=== PATIENT | female | born 1975 | race Caucasian/White ===

== ENCOUNTER 2016-12-04 09:31 | Emergency (ER) | payer MEDICAID, OTHER ==
[~2016-12-04] VITALS: Ht 157.5 cm; Wt 100.0 kg
[2016-12-04 09:38] VITALS: BP 171/90; PULSE 80; RESP 16; TEMP 98.7; O2SAT 99
[2016-12-04] MEDS ORDERED: PERM5CRE TOPICAL (09:50)
--- NOTE | 2016-12-04 09:51 | PD ---
HPI Chief Complaint: Skin Problem Time Seen by Provider: 09:49 Travel History International Travel<30 days: No Contact w/Intl Traveler<30days: No History of Present Illness HPI 41 year old female presents to the emergency department for evaluation of itchy rash. She arrives with her children with the same rash. I was asked by the systems engineer to see the patient. The children were recently diagnosed with scabies. She has no chronic medical problems and takes no prescribed medications. She denies any fevers or chills. She has no other complaints at this time. [facility]MERLY [facility] Past Medical History Medical History: Denies Significant Hx Immunizations Current: Yes ?: Not Past Surgical History Appendectomy: Yes Cholecystectomy: Yes Gynecologic Surgery: Yes Social History Alcohol Use: No Tobacco Use: Yes Substance Use: No Allergies-Medications (Allergen,Severity, Reaction): Coded Allergies: No Known Allergies (Unverified , 12/04/16) Reported Meds & Prescriptions Reported Meds & Active Scripts Active Permethrin Topical (Permethrin) 5% Cream 1 Applic TOPICAL ONCE Review of Systems Except as stated in HPI: all other systems reviewed are Neg Physical Exam Narrative GENERAL: Well-nourished, well-developed female patient, ambulatory and in no acute distress. Afebrile. SKIN: Focused skin assessment warm/dry. Patient has small scabbed lesions to the upper extremities and lower back. HEAD: Normocephalic. Atraumatic. EYES: No scleral icterus. No injection or drainage. NECK: Supple, trachea midline. No JVD or lymphadenopathy. CARDIOVASCULAR: Regular rate and rhythm without murmurs, gallops, or rubs. RESPIRATORY: Breath sounds equal bilaterally. No accessory muscle use. Lung sounds are clear to auscultation throughout. GASTROINTESTINAL: Abdomen soft, non-tender, nondistended. MUSCULOSKELETAL: No cyanosis, or edema. BACK: Nontender without obvious deformity. No CVA tenderness. Data Data Last Documented VS Vital Signs Date Time Temp Pulse Resp B/P Pulse Ox O2 Delivery O2 Flow Rate FiO2 12/04/16 09:38 98.7 80 16 171/90 99 MDM Medical Decision Making Medical Screen Exam Complete: Yes Emergency Medical Condition: Yes Medical Record Reviewed: Yes Differential Diagnosis Scabies versus insect bites versus contact dermatitis Narrative Course 41-year-old female presents to the emergency department with her children for evaluation of an itchy rash. I was asked by the systems engineer to see the mother as the kids were just diagnosed with scabies. Physical exam is consistent with scabies. Patient will be discharged prescription for permethrin cream. She verbalizes agreement and understanding. The patient was discharged in stable condition with instructions, including return instructions and follow up instructions. Diagnosis Primary Impression: Scabies Referrals: Primary Care Physician call for appointment Patient Instructions: General Instructions, Scabies (ED) Departure Forms: Tests/Procedures, Work Release Enter return to work date: Dec 05, 2016 Additional Instructions: Use permethrin cream as instructed. Thoroughly massage cream (30 g for average adult) from head to soles of feet; leave on for 8 to 14 hours before removing ( shower or bath) Follow-up with your primary care physician. Return to the emergency department for any acute worsening of symptoms. Med/Other Pt SpecificInfo: Prescription(s) given Scripts Permethrin Topical 5% Cream1 Applic TOPICAL ONCE #1 TUBE Ref 0 Prov:Hayley Ortega 12/04/16 Disposition: 01 DISCHARGE HOME Condition: Stable Hayley Ortega Dec 04, 2016 09:51
== END 2016-12-04 10:16 | disposition home or self-care (01) ==
LOC: NEPA 09:31
DX: B86 Scabies (principal); Z72.0 Tobacco use
CPT/HCPCS: 99282

== ENCOUNTER 2017-06-09 14:51 | Observation (INO) | payer MEDICAID ==
[~2017-06-09] VITALS: Ht 157.5 cm; Wt 105.0 kg
[~2017-06-09 14:51] MED LIST: PERM5CRE TOPICAL
[2017-06-09 14:52] VITALS: BP 164/77; PULSE 111; RESP 22; TEMP 98.9; O2SAT 96
[2017-06-09] MEDS ORDERED: IOHEXOL 350 MG/ML 10 ML VIAL (for RAD DIAG) IVCONTRAST ONE (14:52)
[2017-06-09] MEDS ORDERED: SODIUM CHLOR 0.9% 1000 ML INJ 1,000 ML IV SCH ×2 (15:41→18:30)
[2017-06-09] MEDS ORDERED: MORPHINE SULFATE 8 MG/ML INJ IV PUSH ONE (15:45)
[2017-06-09] MEDS ORDERED: SODIUM CHLORIDE 0.9% FLUSH 10 ML FLUSH IV FLUSH PRN ×2 (15:45→19:00)
[2017-06-09] MEDS ORDERED: ONDANSETRON HCL 4 MG/2 ML VIAL IVP ONE (15:45)
[2017-06-09 16:16] LABS: AUTOMATED NEUTROPHIL # 10.5 TH/MM3 (1.8-7.7); BASOPHIL # 0.1 TH/MM3 (0-0.2); BASOPHIL % 0.5 % (0.0-2.0); EOSINOPHIL # 0.1 TH/MM3 (0-0.4); EOSINOPHIL % 0.6 % (0.0-4.0); HEMATOCRIT 40.7 % (35.0-46.0); LYMPH % 19.4 % (9.0-44.0); LYMPHOCYTE # 2.8 TH/MM3 (1.0-4.8); MEAN CELL VOLUME 94.8 FL (80.0-100.0); MEAN CORPUSCULAR HEMOGLOBIN 34.5 PG (27.0-34.0); MONO % 6.5 % (0.0-8.0); PLATELET COUNT 238 TH/MM3 (150-450); RED BLOOD COUNT 4.29 MIL/MM3 (4.00-5.30); RED CELL DISTRIBUTION WIDTH 12.2 % (11.6-17.2); WHITE BLOOD COUNT 14.4 TH/MM3 (4.0-11.0)
[2017-06-09 16:19] LABS: HEMO FLAGS AUTO DIFF; MEAN CORPUSCULAR HGB CONC 36.3 % (32.0-36.0)
[2017-06-09 16:22] LABS: BLOOD, URINE TRACE (NEG); GLUCOSE,URINE 1000 mg/dL (NEG); KETONE, URINE NEG (NEG); NITRITE,URINE NEG (NEG); PH, URINE 6.5 (5.0-8.5); SQUAMOUS EPITHELIAL CELL URINE 1 /hpf (0-5); URINE COLOR LIGHT-YELLOW (YELLW/STRAW)
[2017-06-09 16:28] LABS: COMMENT (UR) CULT NOT INDICATED; CULTURE IF INDICATED CULT NOT INDICATED
[2017-06-09 16:35] LABS: ANION GAP 10 MEQ/L (5-15); BLOOD UREA NITROGEN 7 MG/DL (7-18); CHLORIDE 95 MEQ/L (98-107); GLOMERULAR FILTRATION RATE 103 ML/MIN (>89); POTASSIUM 4.1 MEQ/L (3.5-5.1); SODIUM (NA) 128 MEQ/L (136-145)
[2017-06-09 16:38] LABS: ALKALINE PHOSPHATASE 87 U/L (45-117); TOTAL BILIRUBIN ADULT 0.6 MG/DL (0.2-1.0)
[2017-06-09 16:57] LABS: BANDS 9 % (0-6); BASOPHILS 1 % (0-2); EOSINOPHILS 2 % (0-4); METAMYELOCYTES 1 % (0-1); NEUTROPHIL # MANUAL DIFF 10.5 TH/MM3 (1.8-7.7); PLATELET ESTIMATE SMEAR NORMAL (NORMAL); PLATELET MORPHOLOGY NORMAL (NORMAL); POLYS (SEG NEUTROPHILS) 63 % (16-70); SCAN/DIFF FINAL DIFF MANUAL; WBC DIFF SAMPLE 100
[2017-06-09] MEDS ORDERED: SODIUM CHLOR 0.9% 1000 ML INJ 1,000 ML IV ONE (17:10)
--- NOTE | 2017-06-09 17:10 | PD ---
HPI Chief Complaint: GI Complaint Time Seen by Provider: 15:16 Travel History International Travel<30 days: No Contact w/Intl Traveler<30days: No Traveled to known affect area: No History of Present Illness HPI Patient is 41 years old. She's had 3 days of epigastric pain and pain in the right upper quadrant. She reports flashes of hot and cold. She denies fever. Nausea and vomiting is reported. Decreased appetite is reported. Last menstruation was 2 days ago. She's had no diarrhea. Severity moderate. PFSH Past Medical History Immunizations Current: Yes ?: Not LMP: 05/31/17 Past Surgical History Appendectomy: Yes Cholecystectomy: Yes Gynecologic Surgery: Yes Social History Alcohol Use: No Tobacco Use: Yes Substance Use: No Allergies-Medications (Allergen,Severity, Reaction): Coded Allergies: No Known Allergies (Unverified , 12/04/16) Reported Meds & Prescriptions Reported Meds & Active Scripts Active Permethrin Topical (Permethrin) 5% Cream 1 Applic TOPICAL ONCE Review of Systems Except as stated in HPI: all other systems reviewed are Neg General / Constitutional: No: Fever Gastrointestinal: Positive: Nausea, Vomiting, Abdominal Pain Physical Exam Narrative GENERAL: 41-year-old female well-nourished well-developed no acute distress SKIN: Focused skin assessment warm/dry. HEAD: Atraumatic. Normocephalic. EYES: Pupils equal and round. No scleral icterus. No injection or drainage. ENT: No nasal bleeding or discharge. Mucous membranes pink and moist. NECK: Trachea midline. No JVD. CARDIOVASCULAR: Regular rate and rhythm. No murmur appreciated. RESPIRATORY: No accessory muscle use. Clear to auscultation. Breath sounds equal bilaterally. GASTROINTESTINAL: Soft. Minimal TTP epigastrium. MUSCULOSKELETAL: No obvious deformities. No clubbing. No cyanosis. No edema. NEUROLOGICAL: Awake and alert. No obvious cranial nerve deficits. Motor grossly within normal limits. Normal speech. PSYCHIATRIC: Appropriate mood and affect; insight and judgment normal. Data Data Last Documented VS Vital Signs Date Time Temp Pulse Resp B/P (MAP) Pulse Ox O2 Delivery O2 Flow Rate FiO2 06/09/17 14:52 98.9 111 22 164/77 (106) 96 VS reviewed Orders Orders Complete Blood Count With Diff (06/09/17 15:41) Comprehensive Metabolic Panel (06/09/17 15:41) Lipase (06/09/17 15:41) Urinalysis - C+S If Indicated (06/09/17 15:41) Ct Abd/Pel W Iv Contrast(Rout) (06/09/17 15:41) Iv Access Insert/Monitor (06/09/17 15:41) Ecg Monitoring (06/09/17 15:41) Oximetry (06/09/17 15:41) Ondansetron Inj (Zofran Inj) (06/09/17 15:45) Sodium Chlor 0.9% 1000 Ml Inj (Ns 1000 M (06/09/17 15:41) Sodium Chloride 0.9% Flush (Ns Flush) (06/09/17 15:45) Morphine Inj (Morphine Inj) (06/09/17 15:45) Ed Urine Pregnancytest Poc (06/09/17 15:41) Iohexol 350 Inj (Omnipaque 350 Inj) (06/09/17 14:52) Labs Laboratory Tests Test 06/09/17 15:55 06/09/17 16:00 Urine Color LIGHT-YELLOW Urine Turbidity CLEAR Urine pH 6.5 Urine Specific [place] 1.039 Urine Protein NEG mg/dL Urine Glucose (UA) 1000 mg/dL Urine Ketones NEG mg/dL Urine Occult Blood TRACE Urine Nitrite NEG Urine Bilirubin NEG Urine Urobilinogen LESS THAN 2.0 MG/DL Urine Leukocyte Esterase NEG Urine RBC LESS THAN 1 /hpf Urine Squamous Epithelial Cells 1 /hpf Microscopic Urinalysis Comment CULT NOT INDICATED White Blood Count 14.4 TH/MM3 Red Blood Count 4.29 MIL/MM3 Hemoglobin 14.8 GM/DL Hematocrit 40.7 % Mean Corpuscular Volume 94.8 FL Mean Corpuscular Hemoglobin 34.5 PG Mean Corpuscular Hemoglobin Concent 36.3 % Red Cell Distribution Width 12.2 % Platelet Count 238 TH/MM3 Mean Platelet Volume 8.3 FL Neutrophils (%) (Auto) 73.0 % Lymphocytes (%) (Auto) 19.4 % Monocytes (%) (Auto) 6.5 % Eosinophils (%) (Auto) 0.6 % Basophils (%) (Auto) 0.5 % Neutrophils # (Auto) 10.5 TH/MM3 Lymphocytes # (Auto) 2.8 TH/MM3 Monocytes # (Auto) 0.9 TH/MM3 Eosinophils # (Auto) 0.1 TH/MM3 Basophils # (Auto) 0.1 TH/MM3 CBC Comment AUTO DIFF Differential Total Cells Counted 100 Neutrophils % (Manual) 63 % Band Neutrophils % 9 % Lymphocytes % 16 % Monocytes % 8 % Eosinophils % 2 % Basophils % 1 % Neutrophils # (Manual) 10.5 TH/MM3 Metamyelocytes 1 % Differential Comment FINAL DIFF MANUAL Platelet Estimate NORMAL Platelet Morphology Comment NORMAL Red Cell Morphology Comment NORMAL Blood Urea Nitrogen 7 MG/DL Creatinine 0.64 MG/DL Random Glucose 449 MG/DL Total Protein 7.9 GM/DL Albumin 3.2 GM/DL Calcium Level 7.9 MG/DL Alkaline Phosphatase 87 U/L Total Bilirubin 0.6 MG/DL Sodium Level 128 MEQ/L Potassium Level 4.1 MEQ/L Chloride Level 95 MEQ/L Carbon Dioxide Level 23.0 MEQ/L Anion Gap 10 MEQ/L Estimat Glomerular Filtration Rate 103 ML/MIN Lipase 728 U/L [facility] Medical Decision Making Medical Screen Exam Complete: Yes Emergency Medical Condition: Yes Medical Record Reviewed: Yes Differential Diagnosis Constipation, Gastritis, Acute Cholecystitis, Biliary Colic, Pancreatitis, PALMA , Hepatitis, Bowel Obstruction, Cystitis, Mesenteric Ischemia, AAA, Appendicitis , Renal Stone/Hydronephrosis, GERD, perforated viscous Narrative Course CBC & BMP Diagram 06/09/17 16:00 Total Protein 7.9, Albumin 3.2 L, Calcium Level 7.9 L, Alkaline Phosphatase 87, Total Bilirubin 0.6 Lipase 728 Imaging pending at time of dictation. Case discussed with on-call provider. 2 L normal saline given. Beta hydroxybutyrate and ABG ordered. insulin given. Ole Rosario MD Jun 09, 2017 17:10
[2017-06-09] MEDS ORDERED: INSULIN HUMAN REGULAR 1,000 UNITS/10 ML VIAL IV PUSH ONE (17:15)
[2017-06-09 17:22] LABS: BLOOD GAS BASE EXCESS 0.1 mmol/L (-2-2); BLOOD GAS CARBOXYHEMOGLOBIN 4.3 % (0-4); BLOOD GAS HCO3 25 mmol/L (22-26); BLOOD GAS METHEMOGLOBIN 2.2 % (0-2); BLOOD GAS O2 HGB SATURATION 90 % (90-100); BLOOD GAS OXYGEN CONTENT 16.1 Vol % (12.0-20.0); BLOOD GAS PCO2 43 mmHg (38-42); BLOOD GAS PO2 74 mmHG (61-120); BLOOD GAS TOTAL HGB 12.7 G/DL (12.0-16.0); CRITICAL VALUE NO; DRAW SITE RT RADIAL; NUMBER OF ARTERIAL PUNCTURES 1; OXYGEN DEVICE RA; STAT YES; TEMP CORR TO 98.6; ULNAR PULSE PRESENT
[2017-06-09 17:22] LABS: ALT (GPT) 36 U/L (10-53); AST (GOT) 30 U/L (15-37)
[2017-06-09 17:27] VITALS: BP 142/70; PULSE 60; RESP 18; O2SAT 98
--- NOTE | 2017-06-09 17:31 | RADRPT ---
EXAM DATE/TIME: 06/09/2017 16:42 [place] COMPARISON: No previous studies available for comparison. INDICATIONS : Bilateral abdominal pain that radiates to back, nausea and vomiting. IV CONTRAST: 96 cc Omnipaque 350 (iohexol) IV ORAL CONTRAST: No oral contrast ingested. RADIATION DOSE: 10.76 CTDIvol (mGy) MEDICAL HISTORY : None SURGICAL HISTORY : Appendectomy. Cholecystectomy. ENCOUNTER: Initial ACUITY: 3 days PAIN SCALE: 7/10 LOCATION: Bilateral abdomen. TECHNIQUE: Volumetric scanning of the abdomen and pelvis was performed. Using automated exposure control and ad justment of the mA and/or kV according to patient size, radiation dose was kept as low as reasonably achievable to obtain optimal diagnostic quality images. DICOM format image data is available electro nically for review and comparison. FINDINGS: LOWER LUNGS: The visualized lower lungs are clear. LIVER: The liver is enlarged and diffusely hypodense. There are no focal space-occupying lesions or evidence of biliary duct dilatation. Gallbladder has been removed. SPLEEN: Normal size without lesion. PANCREAS: Within normal limits. KIDNEYS: Normal in size and shape. There is no mass, stone or hydronephrosis. ADRENAL GLANDS: Within normal limits. VASCULAR: There is no aortic aneurysm. BOWEL/MESENTERY: The stomach, small bowel, and colon demonstrate no acute abnormality. There is no free intraperitone al air or fluid. ABDOMINAL WALL: Fat-containing umbilical hernia is identified. RETROPERITONEUM: There is no lymphadenopathy. BLADDER: No wall thickening or mass. REPRODUCTIVE: A 6 cm left adnexal cyst is identified. The uterus and right adnexal region are unremarkable. INGUINAL: There is no lymphadenopathy or hernia. MUSCULOSKELETAL: Within normal limits for patient age. CONCLUSION: 1. Hepatomegaly with advanced steatosis. 2. 6 cm left adnexal cyst 3. Fat-containing umbilical hernia. 4. No other significant abnormality. Ever Dick MD on June 09, 2017 at 17:26 Board Certified Radiologist. This report was verified electronically.
--- NOTE | 2017-06-09 18:20 | PD ---
Physical Exam Narrative GENERAL: SKIN: Warm and dry. HEAD: Atraumatic. Normocephalic. EYES: Pupils equal and round. No scleral icterus. No injection or drainage. ENT: No nasal bleeding or discharge. Mucous membranes pink and moist. NECK: Trachea midline. No JVD. CARDIOVASCULAR: Regular rate and rhythm. RESPIRATORY: No accessory muscle use. Clear to auscultation. Breath sounds equal bilaterally. GASTROINTESTINAL: Abdomen soft, mild epig ttp, nondistended. . MUSCULOSKELETAL: Extremities without clubbing, cyanosis, or edema. No obvious deformities. NEUROLOGICAL: Awake and alert. No obvious cranial nerve deficits. Motor grossly within normal limits. Five out of 5 muscle strength in the arms and legs. Normal speech. PSYCHIATRIC: Appropriate mood and affect; insight and judgment normal. Data Data Last Documented VS Vital Signs Date Time Temp Pulse Resp B/P (MAP) Pulse Ox O2 Delivery O2 Flow Rate FiO2 06/09/17 17:27 60 18 142/70 (94) 98 06/09/17 14:52 98.9 Orders Orders Complete Blood Count With Diff (06/09/17 15:41) Comprehensive Metabolic Panel (06/09/17 15:41) Lipase (06/09/17 15:41) Urinalysis - C+S If Indicated (06/09/17 15:41) Ct Abd/Pel W Iv Contrast(Rout) (06/09/17 15:41) Iv Access Insert/Monitor (06/09/17 15:41) Ecg Monitoring (06/09/17 15:41) Oximetry (06/09/17 15:41) Ondansetron Inj (Zofran Inj) (06/09/17 15:45) Sodium Chlor 0.9% 1000 Ml Inj (Ns 1000 M (06/09/17 15:41) Sodium Chloride 0.9% Flush (Ns Flush) (06/09/17 15:45) Morphine Inj (Morphine Inj) (06/09/17 15:45) Ed Urine Pregnancytest Poc (06/09/17 15:41) Iohexol 350 Inj (Omnipaque 350 Inj) (06/09/17 14:52) Beta Hydroxybutyrate (Acetone) (06/09/17 17:10) Arterial Blood Gas (Abg) (06/09/17 17:10) Sodium Chlor 0.9% 1000 Ml Inj (Ns 1000 M (06/09/17 17:10) Insulin Human Regular Inj (Novolin R Inj (06/09/17 17:15) Labs Laboratory Tests Test 06/09/17 15:55 06/09/17 16:00 06/09/17 17:08 Urine Color LIGHT-YELLOW Urine Turbidity CLEAR Urine pH 6.5 Urine Specific [place] 1.039 Urine Protein NEG mg/dL Urine Glucose (UA) 1000 mg/dL Urine Ketones NEG mg/dL Urine Occult Blood TRACE Urine Nitrite NEG Urine Bilirubin NEG Urine Urobilinogen LESS THAN 2.0 MG/DL Urine Leukocyte Esterase NEG Urine RBC LESS THAN 1 /hpf Urine Squamous Epithelial Cells 1 /hpf Microscopic Urinalysis Comment CULT NOT INDICATED White Blood Count 14.4 TH/MM3 Red Blood Count 4.29 MIL/MM3 Hemoglobin 14.8 GM/DL Hematocrit 40.7 % Mean Corpuscular Volume 94.8 FL Mean Corpuscular Hemoglobin 34.5 PG Mean Corpuscular Hemoglobin Concent 36.3 % Red Cell Distribution Width 12.2 % Platelet Count 238 TH/MM3 Mean Platelet Volume 8.3 FL Neutrophils (%) (Auto) 73.0 % Lymphocytes (%) (Auto) 19.4 % Monocytes (%) (Auto) 6.5 % Eosinophils (%) (Auto) 0.6 % Basophils (%) (Auto) 0.5 % Neutrophils # (Auto) 10.5 TH/MM3 Lymphocytes # (Auto) 2.8 TH/MM3 Monocytes # (Auto) 0.9 TH/MM3 Eosinophils # (Auto) 0.1 TH/MM3 Basophils # (Auto) 0.1 TH/MM3 CBC Comment AUTO DIFF Differential Total Cells Counted 100 Neutrophils % (Manual) 63 % Band Neutrophils % 9 % Lymphocytes % 16 % Monocytes % 8 % Eosinophils % 2 % Basophils % 1 % Neutrophils # (Manual) 10.5 TH/MM3 Metamyelocytes 1 % Differential Comment FINAL DIFF MANUAL Platelet Estimate NORMAL Platelet Morphology Comment NORMAL Red Cell Morphology Comment NORMAL Blood Urea Nitrogen 7 MG/DL Creatinine 0.64 MG/DL Random Glucose 449 MG/DL Total Protein 7.9 GM/DL Albumin 3.2 GM/DL Calcium Level 7.9 MG/DL Alkaline Phosphatase 87 U/L Aspartate Amino Transf (AST/SGOT) 30 U/L Alanine Aminotransferase (ALT/SGPT) 36 U/L Total Bilirubin 0.6 MG/DL Sodium Level 128 MEQ/L Potassium Level 4.1 MEQ/L Chloride Level 95 MEQ/L Carbon Dioxide Level 23.0 MEQ/L Anion Gap 10 MEQ/L Estimat Glomerular Filtration Rate 103 ML/MIN Lipase 728 U/L B-Hydroxybutyrate 0.09 MMOL/L Blood Gas Puncture Site RT RADIAL Blood Gas Patient Temperature 98.6 Blood Gas HCO3 25 mmol/L Blood Gas Base Excess 0.1 mmol/L Blood Gas Oxygen Saturation 90 % Arterial Blood pH 7.38 Arterial Blood Partial Pressure CO2 43 mmHg Arterial Blood Partial Pressure O2 74 mmHG Arterial Blood Oxygen Content 16.1 Vol % Arterial Blood Carboxyhemoglobin 4.3 % Arterial Blood Methemoglobin 2.2 % Blood Gas Hemoglobin 12.7 G/DL Oxygen Delivery Device RA [facility] Medical Record Reviewed: Yes Supervised Visit with TORIE: No Narrative Course no e/o dka noted, however in a patient with no h/o dm, her glucose was 400's, abg did not show any acidosis, cmp showed hyponatremia c/w pseudohyponatremia due to hyperglycemia. Diagnosis Primary Impression: acute pancreatitis Additional Impression: acute hyperglycemia without dka Admitting Information Admitting Physician Requests: Observation Nikita Subramanian MD Jun 09, 2017 18:20
[2017-06-09] MEDS ORDERED: GLUCAGON 1 MG/ML VIAL OTHER PRN (18:30)
[2017-06-09] MEDS ORDERED: DEXTROSE 50% IN WATER 50 ML VIAL(D50) IV PUSH PRN (18:30)
[2017-06-09] MEDS ORDERED: ONDANSETRON HCL 4 MG/2 ML VIAL IV PUSH PRN (18:30)
--- NOTE | 2017-06-09 18:57 | HHI.HP ---
HPI Service [facility] Primary Care Physician No Primary Care Physician Admission Diagnosis ACUTE PANCREATITIS,NEW ONSET DM,HYPONATREMIA Diagnoses: (1) Pancreatitis Diagnosis: Principal (2) DM (diabetes mellitus) Diagnosis: Principal (3) Leukocytosis Diagnosis: Principal (4) Tobacco abuse Diagnosis: Principal Travel History International Travel<30 Days: No Contact w/Intl Traveler <30 Da: No Traveled to Known Affected Are: No History of Present Illness This is a 41-year-old female with no significant PMH of present ER with complaints of epigastric pain addition to nausea and vomiting x3 days. Denies fever, chills or diarrhea. No reported sick contacts. No h/o similar symptoms in the past. On arrival, BP 164/77, HR 111, O2 sat 96% on RA, Afebrile. WBC 14.4 with bandemia of 9%. Na 128. BS 449. No reported h/o DM. U/a negative. CT Abd/Pelvis with hepatomegaly and advanced steatosis, fat-containing umbilical hernia, no other significant abnormalities. Review of Systems Except as stated in HPI: all other systems reviewed are Neg ROS: 14 point review of systems otherwise negative. Past Family Social History Past Medical History PMH: None Past Surgical History PAST SURGICAL HISTORY: Appendectomy, Cholecystectomy Allergies: Coded Allergies: No Known Allergies (Unverified , 12/04/16) Family History PAST FAMILY HISTORY: Reviewed. No h/o DM or CAD Social History PAST SOCIAL HISTORY: Negative for alcohol or drugs. Positive for tobacco. Physical Exam Vital Signs Vital Signs Date Time Temp Pulse Resp B/P (MAP) Pulse Ox O2 Delivery O2 Flow Rate FiO2 06/09/17 17:27 60 18 142/70 (94) 98 06/09/17 14:52 98.9 111 22 164/77 (106) 96 Physical Exam PE: GENERAL: female in no acute distress. HEENT: PERRLA, EOMI. No scleral icterus or conjunctival pallor. No lid lag or facial droop. CARDIOVASCULAR: Regular rate and rhythm. No obvious murmurs to auscultation. No chest tenderness to palpation. RESPIRATORY: No obvious rhonchi or wheezing. Clear to auscultation. Breath sounds equal bilaterally. GASTROINTESTINAL: Abdomen soft, epigastric tenderness to palpation, nondistended. BS normal. MUSCULOSKELETAL: Extremities without clubbing, cyanosis, or edema. No obvious deformities. NEUROLOGICAL: Awake, alert and oriented x4. No focal neurologic deficits. Moving both upper and lower extremities spontaneously. Laboratory Laboratory Tests Test 06/09/17 15:55 06/09/17 16:00 06/09/17 17:08 Urine Color LIGHT-YELLOW Urine Turbidity CLEAR Urine pH 6.5 Urine Specific [place] 1.039 Urine Protein NEG Urine Glucose (UA) 1000 Urine Ketones NEG Urine Occult Blood TRACE Urine Nitrite NEG Urine Bilirubin NEG Urine Urobilinogen LESS THAN 2.0 Urine Leukocyte Esterase NEG Urine RBC LESS THAN 1 Urine Squamous Epithelial Cells 1 Microscopic Urinalysis Comment CULT NOT INDICATED White Blood Count 14.4 Red Blood Count 4.29 Hemoglobin 14.8 Hematocrit 40.7 Mean Corpuscular Volume 94.8 Mean Corpuscular Hemoglobin 34.5 Mean Corpuscular Hemoglobin Concent 36.3 Red Cell Distribution Width 12.2 Platelet Count 238 Mean Platelet Volume 8.3 Neutrophils (%) (Auto) 73.0 Lymphocytes (%) (Auto) 19.4 Monocytes (%) (Auto) 6.5 Eosinophils (%) (Auto) 0.6 Basophils (%) (Auto) 0.5 Neutrophils # (Auto) 10.5 Lymphocytes # (Auto) 2.8 Monocytes # (Auto) 0.9 Eosinophils # (Auto) 0.1 Basophils # (Auto) 0.1 CBC Comment AUTO DIFF Differential Total Cells Counted 100 Neutrophils % (Manual) 63 Band Neutrophils % 9 Lymphocytes % 16 Monocytes % 8 Eosinophils % 2 Basophils % 1 Neutrophils # (Manual) 10.5 Metamyelocytes 1 Differential Comment FINAL DIFF MANUAL Platelet Estimate NORMAL Platelet Morphology Comment NORMAL Red Cell Morphology Comment NORMAL Blood Urea Nitrogen 7 Creatinine 0.64 Random Glucose 449 Total Protein 7.9 Albumin 3.2 Calcium Level 7.9 Alkaline Phosphatase 87 Aspartate Amino Transf (AST/SGOT) 30 Alanine Aminotransferase (ALT/SGPT) 36 Total Bilirubin 0.6 Sodium Level 128 Potassium Level 4.1 Chloride Level 95 Carbon Dioxide Level 23.0 Anion Gap 10 Estimat Glomerular Filtration Rate 103 Lipase 728 B-Hydroxybutyrate 0.09 Blood Gas Puncture Site RT RADIAL Blood Gas Patient Temperature 98.6 Blood Gas HCO3 25 Blood Gas Base Excess 0.1 Blood Gas Oxygen Saturation 90 Arterial Blood pH 7.38 Arterial Blood Partial Pressure CO2 43 Arterial Blood Partial Pressure O2 74 Arterial Blood Oxygen Content 16.1 Arterial Blood Carboxyhemoglobin 4.3 Arterial Blood Methemoglobin 2.2 Blood Gas Hemoglobin 12.7 Oxygen Delivery Device RA Result Diagram: 06/09/17 1600 06/09/171599 Katarzyna VTE Risk Assessment Caprini VTE Risk Assessment: No/Low Risk (score <= 1) Caprini Risk Assessment Model Point Value = 1 Point Value = 2 Point Value = 3 Point Value = 5 Age 41-60 Minor surgery BMI > 25 kg/m2 Swollen legs Varicose veins or History of unexplained or recurrent spontaneous Oral contraceptives or hormone replacement Sepsis (< 1 month) Serious lung disease, including pneumonia (< 1 month) Abnormal pulmonary function Acute myocardial infarction Congestive heart failure (< 1 month) History of inflammatory bowel disease Medical patient at bed rest Age 61-74 Arthroscopic surgery Major open surgery (> 45 min) Laparoscopic surgery (> 45 min) Malignancy Confined to bed (> 72 hours) Immobilizing plaster cast Central venous access Age >= 75 History of VTE Family history of VTE Factor V Leiden Prothrombin [id number] Lupus anticoagulant Anticardiolipin antibodies Elevated serum homocysteine Heparin-induced thrombocytopenia Other congenital or acquired thrombophilia Stroke (< 1 month) Elective arthroplasty Hip, pelvis, or leg fracture Acute spinal cord injury (< 1 month) Prophylaxis Regimen Total Risk Factor Score Risk Level Prophylaxis Regimen 0-1 Low Early ambulation 2 Moderate Order ONE of the following: *Sequential Compression Device (SCD) *Heparin 5000 units SQ BID 3-4 Higher Order ONE of the following medications: *Heparin 5000 units SQ TID *Enoxaparin/Lovenox 40 mg SQ daily (WT < 150 kg, CrCl > 30 mL/min) *Enoxaparin/Lovenox 30 mg SQ daily (WT < 150 kg, CrCl > 10-29 mL/min) *Enoxaparin/Lovenox 30 mg SQ BID (WT < 150 kg, CrCl > 30 mL/min) AND/OR *Sequential Compression Device (SCD) 5 or more Highest Order ONE of the following medications: *Heparin 5000 units SQ TID (Preferred with Epidurals) *Enoxaparin/Lovenox 40 mg SQ daily (WT < 150 kg, CrCl > 30 mL/min) *Enoxaparin/Lovenox 30 mg SQ daily (WT < 150 kg, CrCl > 10-29 mL/min) *Enoxaparin/Lovenox 30 mg SQ BID (WT < 150 kg, CrCl > 30 mL/min) AND *Sequential Compression Device (SCD) Assessment and Plan Problem List: (1) Pancreatitis ICD Code: K85.90 - Acute pancreatitis without necrosis or infection, unspecified (2) DM (diabetes mellitus) ICD Code: E11.9 - Type 2 diabetes mellitus without complications (3) Leukocytosis ICD Code: D72.829 - Elevated white blood cell count, unspecified (4) Tobacco abuse ICD Code: Z72.0 - Tobacco use Assessment and Plan A/P: 1. Pancreatitis: Acute. c/o abdominal pain, nausea/vomiting x3 days. Lipase 728. CT Abd/Pelvis w/ advanced steatosis and fat containing hernia, no other acute abnormalities noted, images reviewed by me. Analgesics/antiemetics, diet as tolerated, repeat Lipase in am. IVF for hydration. 2. DM: New Onset. BS 449, no h/o DM in the past. Check Hgb A1c. S/p Insulin in ER. Sliding scale w/ Accu-Cheks 3. Leukocytosis: w/ bandemia 9%, no obvious infection. Afebrile. U/a negative. Check CXR, repeat labs in am. 4. Tobacco Abuse: Pt counselled. NicoDerm prn if needed. 5. DVT Prophylaxis: SCD/Teds. 6. Social work for d/c planning as needed. 7. Case discussed w/ day physician at length. Josephine Otero MD Jun 09, 2017 18:57
[2017-06-09] MEDS ORDERED: ONDANSETRON HCL 4 MG/2 ML VIAL IVP PRN (19:00)
[2017-06-09] MEDS ORDERED: LACTULOSE SYRUP 20 GM/30 ML CUP PO PRN (19:00)
[2017-06-09] MEDS ORDERED: SENNOSIDES 8.6 MG TAB PO PRN (19:00)
[2017-06-09] MEDS ORDERED: MORPHINE SULFATE 4 MG/ML INJ IV PUSH PRN (19:00)
[2017-06-09] MEDS ORDERED: MAGNESIUM HYDROXIDE SUSP 30 ML CUP PO PRN (19:00)
[2017-06-09] MEDS ORDERED: ACETAMINOPHEN 325 MG TAB PO PRN (19:00)
[2017-06-09] MEDS ORDERED: BISACODYL 10 MG SUPP RECTAL PRN (19:00)
[2017-06-09] MEDS ORDERED: ACETAMINOPHEN/HYDROcodone 325 MG/5 MG TAB PO PRN (19:00)
[2017-06-09] MEDS: SODIUM CHLOR 0.9% 1000 ML INJ 1,000 ML IV SCH (19:30)
--- NOTE | 2017-06-09 19:44 | RADRPT ---
EXAM DATE/TIME: 06/09/2017 19:21 [place] COMPARISON: No previous studies available for comparison. INDICATIONS : Shortness of breath. MEDICAL HISTORY : None. SURGICAL HISTORY : None. ENCOUNTER: Initial ACUITY: 1 day PAIN SCORE: 0/10 LOCATION: chest FINDINGS: A single view of the chest demonstrates the lungs to be symmetrically aerated without evidence of mas s, infiltrate or effusion. The cardiomediastinal contours are unremarkable. Osseous structures are intact. CONCLUSION: No acute disease. Ever Dick MD on June 09, 2017 at 19:42 Board Certified Radiologist. This report was verified electronically.
[2017-06-09 21:10] VITALS: BP 117/55; PULSE 97; RESP 18; TEMP 99.6; O2SAT 97
[2017-06-09] MEDS: INSULIN ASPART SUPPLEMENTAL SCALE SQ SCH (21:57)
[2017-06-09] MEDS: DOCUSATE SODIUM 50 MG/SENNA 8.6 MG TAB PO SCH (21:57)
[2017-06-09] MEDS: SODIUM CHLORIDE 0.9% FLUSH 10 ML FLUSH IV FLUSH SCH (21:57)
[2017-06-09 22:44] LABS: BETA HCG QUANT LESS THAN 1 MIU/ML (0-5)
[2017-06-09 23:34] VITALS: BP 124/64; PULSE 94; RESP 17; TEMP 98.8; O2SAT 95
[2017-06-10] MEDS: SODIUM CHLOR 0.9% 1000 ML INJ 1,000 ML IV SCH ×2 (04:08→12:34)
[2017-06-10 04:26] VITALS: BP 116/57; PULSE 84; RESP 17; TEMP 98.3; O2SAT 96
[2017-06-10 07:34] VITALS: BP 104/57; PULSE 80; RESP 16; TEMP 98; O2SAT 97
[2017-06-10 08:33] LABS: AUTOMATED NEUTROPHIL # 5.1 TH/MM3 (1.8-7.7); BASOPHIL % 0.4 % (0.0-2.0); EOSINOPHIL # 0.1 TH/MM3 (0-0.4); EOSINOPHIL % 1.4 % (0.0-4.0); HEMATOCRIT 37.1 % (35.0-46.0); HEMO FLAGS DIFF FINAL; LYMPH % 30.4 % (9.0-44.0); LYMPHOCYTE # 2.5 TH/MM3 (1.0-4.8); MEAN CELL VOLUME 95.7 FL (80.0-100.0); MEAN CORPUSCULAR HGB CONC 35.6 % (32.0-36.0); MONO % 7.1 % (0.0-8.0); NEUT % 60.7 % (16.0-70.0); PLATELET COUNT 191 TH/MM3 (150-450); RED BLOOD COUNT 3.88 MIL/MM3 (4.00-5.30); RED CELL DISTRIBUTION WIDTH 12.5 % (11.6-17.2); WHITE BLOOD COUNT 8.3 TH/MM3 (4.0-11.0)
[2017-06-10 08:51] LABS: ALKALINE PHOSPHATASE 99 U/L (45-117); TOTAL BILIRUBIN ADULT 0.5 MG/DL (0.2-1.0)
--- NOTE | 2017-06-10 08:57 | HHI.PR ---
Subjective Remarks Follow-up for pancreatitis and new onset diabetes. Patient is doing much better today. Abdominal pain has improved. Nausea has resolved and patient tolerating oral intake. She reports her grandmother was on pills for diabetes in her mother was on insulin. She does not currently have a PCP, but verbalizes understanding of the need to follow-up. She denies any alcohol use. She smokes half a pack per day. Objective Vitals Vital Signs Date Time Temp Pulse Resp B/P (MAP) Pulse Ox O2 Delivery O2 Flow Rate FiO2 06/10/17 07:34 98.0 80 16 104/57 (73) 97 06/10/17 04:26 98.3 84 17 116/57 (76) 96 06/09/17 23:34 98.8 94 17 124/64 (84) 95 06/09/17 21:10 99.6 97 18 117/55 (75) 97 06/09/17 17:27 60 18 142/70 (94) 98 06/09/17 14:52 98.9 111 22 164/77 (106) 96 I/O 06/09/17 06/09/17 06/09/17 06/10/17 06/10/17 06/10/17 06:59 14:59 22:59 06:59 14:59 22:59 Intake Total 2000 ml 2264 ml Balance 2000 ml 2264 ml Intake Oral 1500 ml IV Total 2000 ml 764 ml # Voids 4 Result Diagram: 06/10/17 0750 06/09/17 1600 Imaging Last Impressions Abdomen/Pelvis CT 06/09/17 1541 Signed Impressions: Service Date/Time: Friday, June 09, 2017 16:42 - CONCLUSION: 1. Hepatomegaly with advanced steatosis. 2. 6 cm left adnexal cyst 3. Fat-containing umbilical hernia. 4. No other significant abnormality. Ever Dick MD Objective Remarks GENERAL: Well-developed well-nourished obese. In no acute distress. SKIN: Warm and dry. No lesions noted. HEENT: Normocephalic. Pupils equal and round. Mucous membranes pink and moist. CARDIOVASCULAR: Regular rate and rhythm. No murmur appreciated. RESPIRATORY: No accessory muscle use. Clear to auscultation. Breath sounds equal bilaterally. GASTROINTESTINAL: Abdomen soft, non-tender, nondistended. Bowel sounds x4. MUSCULOSKELETAL: No obvious deformities. No clubbing or cyanosis. No edema. NEUROLOGICAL: Awake and alert. No focal neurological deficits. Moves upper and lower extremities spontaneously. Normal speech. PSYCHIATRIC: Appropriate mood and affect; insight and judgment normal. A/P Problem List: (1) Pancreatitis ICD Code: K85.90 - Acute pancreatitis without necrosis or infection, unspecified Status: Acute (2) DM (diabetes mellitus) ICD Code: E11.9 - Type 2 diabetes mellitus without complications Status: Acute (3) Leukocytosis ICD Code: D72.829 - Elevated white blood cell count, unspecified Status: Resolved (4) Tobacco abuse ICD Code: Z72.0 - Tobacco use Status: Chronic Assessment and Plan 41-year-old female with no significant PMH who presented with epigastric pain, nausea, and vomiting x3 days Acute Pancreatitis: c/o upper abdominal pain, nausea/vomiting x3 days; symptoms have improved. Lipase 728, repeat pending. LFTs within normal limits. CT Abd/Pelvis w/ advanced steatosis and fat containing hernia, no other acute abnormalities noted. Likely secondary to hyperglycemia as below. Supportive care. Diet as tolerated. IVF for hydration. Check lipid profile. New-onset diabetes mellitus with hyperglycemia: BS 449, no h/o DM in the past. No evidence of acidosis. Hgb A1c pending. Monitor Accu-Cheks. Sliding scale coverage for now. healthcare educator consulted. Leukocytosis: Probably reactive secondary to the above. Improved. Afebrile. UA and chest x-ray negative. Resolved. Tobacco Abuse: Patient counselled. NicoDerm prn if needed. Morbid obesity: Counseled on weight reduction. Dietitian consulted. DVT Prophylaxis: SCD/Teds. Discharge Planning Follow-up A1c and monitor blood glucoses. Discharge planning when blood glucoses are better controlled. Problem Qualifiers (1) Pancreatitis: Qualified Codes: K85.90 - Acute pancreatitis without necrosis or infection, unspecified (2) DM (diabetes mellitus): Qualified Codes: E11.65 - Type 2 diabetes mellitus with hyperglycemia Julius Mcdaniel Jun 10, 2017 08:56
[2017-06-10] MEDS: INSULIN ASPART SUPPLEMENTAL SCALE SQ SCH ×4 (08:58→22:55)
[2017-06-10] MEDS: SODIUM CHLORIDE 0.9% FLUSH 10 ML FLUSH IV FLUSH SCH ×2 (08:58→21:00)
[2017-06-10] MEDS: DOCUSATE SODIUM 50 MG/SENNA 8.6 MG TAB PO SCH ×2 (08:58→21:00)
[2017-06-10 09:45] LABS: ANION GAP 8 MEQ/L (5-15)
[2017-06-10 09:56] LABS: ALT (GPT) 79 U/L (10-53); BICARBONATE 24.8 MEQ/L (21.0-32.0); CHLORIDE 100 MEQ/L (98-107); GLOMERULAR FILTRATION RATE 206 ML/MIN (>89); POTASSIUM 3.5 MEQ/L (3.5-5.1); SODIUM (NA) 133 MEQ/L (136-145)
[2017-06-10 09:57] LABS: HDL CHOLESTEROL 17.7 MG/DL (40.0-60.0)
[2017-06-10 09:58] LABS: BLOOD UREA NITROGEN 4 MG/DL (7-18)
[2017-06-10 10:14] LABS: AST (GOT) 73 U/L (15-37)
[2017-06-10 11:24] VITALS: BP 127/67; PULSE 86; RESP 16; TEMP 98; O2SAT 95
[2017-06-10 16:51] VITALS: BP 137/83; PULSE 79; RESP 16; TEMP 97.6; O2SAT 95
[2017-06-10 20:27] VITALS: BP 124/60; PULSE 76; RESP 16; TEMP 98.5; O2SAT 98
[2017-06-10] MEDS ORDERED: INSULIN DETEMIR 100 UNITS/ML VIAL SQ SCH (21:00)
[2017-06-10] MEDS ORDERED: NIACIN 500 MG EXTENDED RELEASE TAB PO SCH (21:00)
[2017-06-10 23:34] VITALS: BP 114/59; PULSE 70; RESP 16; TEMP 98.2; O2SAT 97
[2017-06-11] MEDS: SODIUM CHLOR 0.9% 1000 ML INJ 1,000 ML IV SCH (01:00)
[2017-06-11 03:57] VITALS: BP 109/66; PULSE 74; RESP 18; TEMP 95.8; O2SAT 98
[2017-06-11 04:51] LABS: ALKALINE PHOSPHATASE 96 U/L (45-117); TOTAL BILIRUBIN ADULT 0.3 MG/DL (0.2-1.0)
[2017-06-11 04:52] LABS: ALT (GPT) 61 U/L (10-53); ANION GAP 5 MEQ/L (5-15); AST (GOT) 37 U/L (15-37); BICARBONATE 26.8 MEQ/L (21.0-32.0); BLOOD UREA NITROGEN 7 MG/DL (7-18); CHLORIDE 103 MEQ/L (98-107); GLOMERULAR FILTRATION RATE 140 ML/MIN (>89); POTASSIUM 3.6 MEQ/L (3.5-5.1); SODIUM (NA) 135 MEQ/L (136-145)
[2017-06-11 07:18] VITALS: BP 121/71; PULSE 74; RESP 16; TEMP 97.8; O2SAT 98
[2017-06-11] MEDS: SODIUM CHLORIDE 0.9% FLUSH 10 ML FLUSH IV FLUSH SCH ×2 (09:00→22:15)
[2017-06-11] MEDS ORDERED: INSULIN DETEMIR 100 UNITS/ML VIAL SQ SCH ×3 (09:00→21:00)
[2017-06-11] MEDS: FENOFIBRATE 145 MG TAB PO SCH (09:14)
[2017-06-11] MEDS: INSULIN ASPART SUPPLEMENTAL SCALE SQ SCH ×4 (09:18→22:14)
--- NOTE | 2017-06-11 10:15 | HHI.PR ---
Subjective Remarks Follow-up pancreatitis and new onset diabetes. Patient is doing well today. No further abdominal pain. No nausea and tolerating oral intake. She does have some occasional belching and abdominal bloating, none currently. Agreeable with the plan to start insulin and continue to adjust dose here and then outpatient follow-up when sugars controlled. She has not seen adaptive physical educator or dietitian yet. Objective Vitals Vital Signs Date Time Temp Pulse Resp B/P (MAP) Pulse Ox O2 Delivery O2 Flow Rate FiO2 06/11/17 07:18 97.8 74 16 121/71 (88) 98 06/11/17 03:57 95.8 74 18 109/66 (80) 98 06/10/17 23:34 98.2 70 16 114/59 (77) 97 06/10/17 20:27 98.5 76 16 124/60 (81) 98 06/10/17 16:51 97.6 79 16 137/83 (101) 95 06/10/17 11:24 98.0 86 16 127/67 (87) 95 I/O 06/10/17 06/10/17 06/10/17 06/11/17 06/11/17 06/11/17 07:00 15:00 23:00 07:00 15:00 23:00 Intake Total 2264 ml 1000 ml 200 ml Balance 2264 ml 1000 ml 200 ml Intake Oral 1500 ml 200 ml IV Total 764 ml 1000 ml # Voids 4 Result Diagram: 06/10/17 0750 06/11/17 0351 Imaging Last Impressions Abdomen/Pelvis CT 06/09/17 1541 Signed Impressions: Service Date/Time: Friday, June 09, 2017 16:42 - CONCLUSION: 1. Hepatomegaly with advanced steatosis. 2. 6 cm left adnexal cyst 3. Fat-containing umbilical hernia. 4. No other significant abnormality. Ever Dick MD Chest X-Ray 06/09/17 0000 Signed Impressions: Service Date/Time: Friday, June 09, 2017 19:21 - CONCLUSION: No acute disease. Ever Dick MD Objective Remarks GENERAL: Well-developed well-nourished obese. In no acute distress. SKIN: Warm and dry. No lesions noted. HEENT: Normocephalic. Pupils equal and round. Mucous membranes pink and moist. CARDIOVASCULAR: Regular rate and rhythm. No murmur appreciated. RESPIRATORY: No accessory muscle use. Clear to auscultation. Breath sounds equal bilaterally. GASTROINTESTINAL: Abdomen soft, non-tender, nondistended. Bowel sounds x4. MUSCULOSKELETAL: No obvious deformities. No clubbing or cyanosis. No edema. NEUROLOGICAL: Awake and alert. No focal neurological deficits. Moves upper and lower extremities spontaneously. Normal speech. PSYCHIATRIC: Appropriate mood and affect; insight and judgment normal. A/P Problem List: (1) Pancreatitis ICD Code: K85.90 - Acute pancreatitis without necrosis or infection, unspecified Status: Resolved (2) DM (diabetes mellitus) ICD Code: E11.9 - Type 2 diabetes mellitus without complications Status: Acute (3) Leukocytosis ICD Code: D72.829 - Elevated white blood cell count, unspecified Status: Resolved (4) Tobacco abuse ICD Code: Z72.0 - Tobacco use Status: Chronic Assessment and Plan 41-year-old female with no significant PMH who presented with epigastric pain, nausea, and vomiting x3 days Acute Pancreatitis: c/o upper abdominal pain, nausea/vomiting x3 days; symptoms have improved. Lipase 728, repeat 326. LFTs within normal limits. CT Abd/Pelvis w/ advanced steatosis and fat containing hernia, no other acute abnormalities noted. Likely secondary to hyperglycemia/hypertriglyceridemia. Supportive care. Diet as tolerated. Lipid profile shows hypertriglyceridemia. Resolved. New-onset diabetes mellitus with hyperglycemia: BS 449, no h/o DM in the past. No evidence of acidosis. Hgb A1c pending. Monitor Accu-Cheks. Sliding scale coverage. clinical document improvement educator consulted. Started on Levemir, continue to titrate dose. Dyslipidemia: Lipid profile shows severe hypertriglyceridemia, unquantifiable LDL, low HDL. LFTs are minimally elevated. Start fenofibrate. Leukocytosis: Probably reactive secondary to the above. Improved. Afebrile. UA and chest x-ray negative. Resolved. Tobacco Abuse: Patient counselled. NicoDerm prn if needed. Morbid obesity: Counseled on weight reduction. Dietitian consulted. DVT Prophylaxis: SCD/Teds. Discharge Planning Follow-up A1c and monitor blood glucoses. Discharge planning when blood glucoses are better controlled, later today vs tomorrow a.m. Problem Qualifiers (1) Pancreatitis: Qualified Codes: K85.90 - Acute pancreatitis without necrosis or infection, unspecified (2) DM (diabetes mellitus): Qualified Codes: E11.65 - Type 2 diabetes mellitus with hyperglycemia Julius Mcdaniel Jun 11, 2017 10:15
[2017-06-11 12:41] VITALS: BP 136/78; PULSE 77; RESP 16; TEMP 98.1; O2SAT 97
[2017-06-11 16:49] LABS: HEMOGLOBIN A1a 1.1 %; HEMOGLOBIN A1b 1.3 %; HEMOGLOBIN Ao 76.2 %; HEMOGLOBIN F 1.6 %; HEMOGLOBIN LA1C 2.8 %; HEMOGLOBIN P3 4.8 %
[2017-06-11 18:35] VITALS: BP 138/83; PULSE 78; RESP 16; TEMP 98.8; O2SAT 96
[2017-06-11 19:28] VITALS: BP 114/58; PULSE 76; RESP 18; TEMP 98.3; O2SAT 97
[2017-06-12 00:17] VITALS: BP 124/76; PULSE 70; RESP 18; TEMP 98.3; O2SAT 98
[2017-06-12 03:56] VITALS: BP 130/60; PULSE 70; RESP 18; TEMP 98; O2SAT 97
[2017-06-12 07:51] VITALS: BP 116/72; PULSE 85; RESP 20; TEMP 98; O2SAT 99
[2017-06-12] MEDS: FENOFIBRATE 145 MG TAB PO SCH (08:26)
[2017-06-12] MEDS: INSULIN ASPART SUPPLEMENTAL SCALE SQ SCH ×2 (08:26→13:41)
[2017-06-12] MEDS: SODIUM CHLORIDE 0.9% FLUSH 10 ML FLUSH IV FLUSH SCH (08:26)
--- NOTE | 2017-06-12 08:33 | HHI.PR ---
Subjective Remarks Follow up for pancreatitis and new onset diabetes. The patient reports feeling better again today. Denies any epigastric pain, nausea/vomiting. Blood sugars still elevated, most recently 253. She has a lot of questions regarding diabetic education. She is concerned she will not be able to fill her medications and she does not have a PCP to follow up with. Objective Vitals Vital Signs Date Time Temp Pulse Resp B/P (MAP) Pulse Ox O2 Delivery O2 Flow Rate FiO2 06/12/17 07:51 98.0 85 20 116/72 (87) 99 06/12/17 03:56 98.0 70 18 130/60 (83) 97 06/12/17 00:17 98.3 70 18 124/76 (92) 98 06/11/17 19:28 98.3 76 18 114/58 (76) 97 06/11/17 18:35 98.8 78 16 138/83 (101) 96 06/11/17 12:41 98.1 77 16 136/78 (97) 97 I/O 06/11/17 06/11/17 06/11/17 06/12/17 06/12/17 06/12/17 07:00 15:00 23:00 07:00 15:00 23:00 Intake Total 1000 ml Balance 1000 ml Intake Oral 1000 ml # Voids 3 Result Diagram: 06/10/17 0750 06/11/17 0351 Imaging Last Impressions Abdomen/Pelvis CT 06/09/17 1541 Signed Impressions: Service Date/Time: Friday, June 09, 2017 16:42 - CONCLUSION: 1. Hepatomegaly with advanced steatosis. 2. 6 cm left adnexal cyst 3. Fat-containing umbilical hernia. 4. No other significant abnormality. Ever Dick MD Chest X-Ray 06/09/17 0000 Signed Impressions: Service Date/Time: Friday, June 09, 2017 19:21 - CONCLUSION: No acute disease. Ever Dick MD Objective Remarks GENERAL: Well-nourished, well-developed pleasant middle aged female patient in [facility]. SKIN: Warm and dry. No rash. HEENT: Normocephalic. Atraumatic.Pupils equal and round. Mucous membranes pink and moist. NECK: Supple. Trachea midline. CARDIOVASCULAR: Regular rate and rhythm. S1, S2 noted. No murmur appreciated. RESPIRATORY: No accessory muscle use. Clear to auscultation. Breath sounds equal bilaterally. GASTROINTESTINAL: Abdomen soft, non-tender, nondistended. Normoactive bowel sounds x4. MUSCULOSKELETAL: No obvious deformities. Extremities without clubbing, cyanosis , or edema. NEUROLOGICAL: Awake and alert. No obvious cranial nerve deficits. Motor grossly within normal limits. Normal speech. PSYCHIATRIC: Appropriate mood and affect; insight and judgment normal. Medications and IVs Current Medications Medications (Trade) Dose Ordered Sig/Lu Route Start Time Stop Time Status Last Admin (D50w (Vial) Inj) 50 ml UNSCH PRN IV PUSH 06/09/17 18:30 (Glucagon Inj) 1 mg UNSCH PRN OTHER 06/09/17 18:30 (NovoLOG SUPPLEMENTAL SCALE) 1 ACHS SLIDING SCALE SQ 06/09/17 21:00 06/11/17 22:14 (NS Flush) 2 ml UNSCH PRN IV FLUSH 06/09/17 19:00 (NS Flush) 2 ml BID IV FLUSH 06/09/17 21:00 06/11/17 22:15 (Zofran Inj) 4 mg Q6H PRN IVP 06/09/17 19:00 (Tylenol) 650 mg Q6H PRN PO 06/09/17 19:00 ([place] 5-325 Mg) 1 tab Q4H PRN PO 06/09/17 19:00 (Morphine Inj) 2 mg Q3H PRN IV PUSH 06/09/17 19:00 (Milk Of Magnesia Liq) 30 ml Q12H PRN PO 06/09/17 19:00 (Senokot) 17.2 mg Q12H PRN PO 06/09/17 19:00 (Dulcolax Supp) 10 mg DAILY PRN RECTAL 06/09/17 19:00 (Lactulose Liq) 30 ml DAILY PRN PO 06/09/17 19:00 (Tricor) 145 mg DAILY PO 06/11/17 09:00 06/11/17 09:14 (Levemir Inj) 25 units HS SQ 06/11/17 21:00 06/11/17 22:15 A/P Problem List: (1) Pancreatitis ICD Code: K85.90 - Acute pancreatitis without necrosis or infection, unspecified Status: Resolved (2) DM (diabetes mellitus) ICD Code: E11.9 - Type 2 diabetes mellitus without complications Status: Acute (3) Leukocytosis ICD Code: D72.829 - Elevated white blood cell count, unspecified Status: Resolved (4) Tobacco abuse ICD Code: Z72.0 - Tobacco use Status: Chronic Assessment and Plan 41-year-old female with no significant PMH who presented with epigastric pain, nausea, and vomiting x3 days Acute Pancreatitis: c/o upper abdominal pain/N/V x3 days; symptoms much improved. Lipase 728, repeat 326. LFTs wnl. CT Abd/Pelvis w/ advanced steatosis and fat containing hernia, no other acute abnormalities noted. Likely secondary to hyperglycemia/hypertriglyceridemia. Supportive care. Diet as tolerated. Lipid profile shows hypertriglyceridemia. Resolved. New-onset diabetes mellitus with hyperglycemia: BS 449, no h/o DM in the past. No evidence of acidosis. Hgb A1c 11.9. Monitor Accu-Cheks. Sliding scale coverage. roof cement and paint maker and gambling counsellor consulted. Started on Levemir, continue to titrate dose, currently at 25u hs. Dyslipidemia: Lipid profile shows severe hypertriglyceridemia, unquantifiable LDL, low HDL. LFTs are minimally elevated. Started on fenofibrate. Leukocytosis: Probably reactive secondary to the above. Improved. Afebrile. UA and CXR negative. Resolved. Tobacco Abuse: Patient counselled. NicoDerm prn if needed. Morbid obesity: Counseled on weight reduction. Dietitian consulted. DVT Prophylaxis: SCD/Teds. Discharge Planning 0830hrs: Await better control of blood glucose and diabetic education. Discussed with case management as patient requesting assistance with meds and supplies. Hopefully discharge later today. Problem Qualifiers (1) Pancreatitis: Qualified Codes: K85.90 - Acute pancreatitis without necrosis or infection, unspecified (2) DM (diabetes mellitus): Qualified Codes: E11.65 - Type 2 diabetes mellitus with hyperglycemia Gaby Rincon PA-C Jun 12, 2017 8:33 am
[2017-06-12 09:35] LABS: HDL CHOLESTEROL 20.4 MG/DL (40.0-60.0)
[2017-06-12 11:30] VITALS: BP 131/72; PULSE 72; RESP 20; TEMP 98.3; O2SAT 98
[2017-06-12] MEDS ORDERED: LEVEMIR SQ (13:53)
[2017-06-12] MEDS ORDERED: FENO145T2 PO (13:53)
[2017-06-12] MEDS ORDERED: INSU1MIS15 (13:58)
[2017-06-12] MEDS ORDERED: GLUCKIT15 (13:58)
[2017-06-12] MEDS ORDERED: GLUCTES12 (13:58)
[2017-06-12] MEDS ORDERED: LANCETS1 MI1 (13:58)
--- NOTE | 2017-06-12 14:00 | HHI.DCPOC ---
Discharge Care Plan Diagnosis: (1) Diabetes mellitus, new onset (2) Pancreatitis Goals to Promote Your Health * To prevent worsening of your condition and complications * To maintain your health at the optimal level Directions to Meet Your Goals Take your medications as prescribed Follow your dietary instruction Follow activity as directed Keep your appointments as scheduled Take your immunizations and boosters as scheduled If your symptoms worsen call your PCP, if no PCP go to Urgent Care Center or Emergency Room Smoking is Dangerous to Your Health. Avoid second hand smoke Call the 24-hour hour crisis hotline for domestic abuse at Gaby Rincon PA-C Jun 12, 2017 14:00
[2017-06-12 15:33] VITALS: BP 132/86; PULSE 82; RESP 20; TEMP 98.2; O2SAT 97
--- NOTE | 2017-06-12 17:15 | HHI.DS ---
Discharge Summary Admission Date Jun 09, 2017 at 18:33 Discharge Date: Jun 12, 2017 Admitting Diagnosis ACUTE PANCREATITIS,NEW ONSET DM,HYPONATREMIA (1) Diabetes mellitus, new onset ICD Code: E11.9 - Type 2 diabetes mellitus without complications Diagnosis: Principal Status: Acute (2) Pancreatitis ICD Code: K85.90 - Acute pancreatitis without necrosis or infection, unspecified Diagnosis: Principal Status: Resolved (3) Leukocytosis ICD Code: D72.829 - Elevated white blood cell count, unspecified Diagnosis: Secondary Status: Resolved (4) Tobacco abuse ICD Code: Z72.0 - Tobacco use Diagnosis: Secondary Status: Chronic Procedures None. Brief History - From Admission This is a 41-year-old female with no significant PMH of present ER with complaints of epigastric pain addition to nausea and vomiting x3 days. Denies fever, chills or diarrhea. No reported sick contacts. No h/o similar symptoms in the past. On arrival, BP 164/77, HR 111, O2 sat 96% on RA, Afebrile. WBC 14.4 with bandemia of 9%. Na 128. BS 449. No reported h/o DM. U/a negative. CT Abd/Pelvis with hepatomegaly and advanced steatosis, fat-containing umbilical hernia, no other significant abnormalities. CBC/BMP: 06/10/17 0750 06/11/17 0351 Significant Findings Laboratory Tests Test 06/10/17 07:50 06/11/17 03:51 06/12/17 07:20 Red Blood Count 3.88 MIL/MM3 (4.00-5.30) Blood Urea Nitrogen 4 MG/DL (7-18) Creatinine 0.35 MG/DL (0.50-1.00) 0.49 MG/DL (0.50-1.00) Random Glucose 261 MG/DL (74-106) 276 MG/DL (74-106) Albumin 2.7 GM/DL (3.4-5.0) 2.7 GM/DL (3.4-5.0) Calcium Level 7.8 MG/DL (8.5-10.1) 8.3 MG/DL (8.5-10.1) Aspartate Amino Transf (AST/SGOT) 73 U/L (15-37) Alanine Aminotransferase (ALT/SGPT) 79 U/L (10-53) 61 U/L (10-53) Sodium Level 133 MEQ/L (136-145) 135 MEQ/L (136-145) Triglycerides Level 2244 MG/DL (42-150) 1601 MG/DL (42-150) Cholesterol Level 307 MG/DL (120-200) 271 MG/DL (120-200) HDL Cholesterol 17.7 MG/DL (40.0-60.0) 20.4 MG/DL (40.0-60.0) Imaging Last Impressions Abdomen/Pelvis CT 06/09/17 1541 Signed Impressions: Service Date/Time: Friday, June 09, 2017 16:42 - CONCLUSION: 1. Hepatomegaly with advanced steatosis. 2. 6 cm left adnexal cyst 3. Fat-containing umbilical hernia. 4. No other significant abnormality. Ever Dick MD Chest X-Ray 06/09/17 0000 Signed Impressions: Service Date/Time: Friday, June 09, 2017 19:21 - CONCLUSION: No acute disease. Ever Dick MD PE at Discharge GENERAL: Well-nourished, well-developed pleasant middle aged female patient in [facility]. SKIN: Warm and dry. No rash. HEENT: Normocephalic. Atraumatic.Pupils equal and round. Mucous membranes pink and moist. NECK: Supple. Trachea midline. CARDIOVASCULAR: Regular rate and rhythm. S1, S2 noted. No murmur appreciated. RESPIRATORY: No accessory muscle use. Clear to auscultation. Breath sounds equal bilaterally. GASTROINTESTINAL: Abdomen soft, non-tender, nondistended. Normoactive bowel sounds x4. MUSCULOSKELETAL: No obvious deformities. Extremities without clubbing, cyanosis , or edema. NEUROLOGICAL: Awake and alert. No obvious cranial nerve deficits. Motor grossly within normal limits. Normal speech. PSYCHIATRIC: Appropriate mood and affect; insight and judgment normal. Hospital Course 41-year-old female with no significant PMH who presented with epigastric pain, nausea, and vomiting x3 days Acute Pancreatitis: c/o upper abdominal pain/N/V x3 days; symptoms much improved. Lipase 728, repeat 326. LFTs wnl. CT Abd/Pelvis w/ advanced steatosis and fat containing hernia, no other acute abnormalities noted. Likely secondary to hyperglycemia/hypertriglyceridemia. Supportive care. Diet as tolerated. Lipid profile shows hypertriglyceridemia. Resolved. New-onset diabetes mellitus with hyperglycemia: BS 449, no h/o DM in the past. No evidence of acidosis. Hgb A1c 11.9. Monitor Accu-Cheks. Sliding scale coverage. informatics educator and sulfide head operator consulted, appreciate assistance. Started on Levemir, continue to titrate dose, last night given 25u sq hs however BG still elevated in low 200s, will discharge on Levemir 30u sq hs. Case management consulted, assisted with filling prescriptions and diabetic supplies prior to discharge. Patient also given information to follow up closely with PCP. Dyslipidemia: Lipid profile shows severe hypertriglyceridemia, unquantifiable LDL, low HDL. LFTs are minimally elevated. Started on fenofibrate. Leukocytosis: Probably reactive secondary to the above. Improved. Afebrile. UA and CXR negative. Resolved. Tobacco Abuse: Patient counselled. NicoDerm prn if needed. Morbid obesity: Counseled on weight reduction. Dietitian consulted. Pt Condition on Discharge: Stable Discharge Disposition: Discharge Home Discharge Time: > 30 minutes Discharge Instructions DIET: Follow Instructions for: Diabetic Diet Activities you can perform: Regular-No Restrictions Follow up Referrals: PCP Follow-up - 1 Week New Medications: Blood Glucose Monitoring W/Device (Glucocom Blood Glucose Mo W/Device) 1 Kit Kit KIT .ROUTE DIRECTED for Blood Sugar Management, #1 Glucocom Test Strips (Glucocom Test Strips) 1 Reyna Reyna EA .ROUTE DIRECTED for Blood Sugar Management, #1 Insulin Syringe/U-100/31G X 5/16" 1 ml (Insulin Syringe/U-100/31G X 5/16" 1 ml) 31 Gauge X 5/16" Mis EA .ROUTE DIRECTED for Blood Sugar Management, #1 0 Refills Lancets (Lancets) 1 Mis Mis EA .ROUTE DIRECTED for Blood Sugar Management, #1 0 Refills Fenofibrate (Fenofibrate) 145 Mg Tab 145 MG PO DAILY for Cholesterol Management, #30 TAB 1 Refill Insulin Detemir Inj (Levemir Inj) 1,000 unit/ 10 ML Vial 30 UNITS SQ HS for Blood Sugar Management, #30 INJECTION 1 Refill Do not mix with any other Insulin. Gaby Rincon PA-C Jun 12, 2017 17:15
== END 2017-06-12 17:47 | disposition home or self-care (01) ==
LOC: NEPD 14:51 → NEDA 18:33 → NEPFCDU 20:56
PROVIDERS: ADMIT Internal Medicine; ATTEND Internal Medicine
DX: K85.90 Acute pancreatitis without necrosis or infection, unspecified (principal); R63.0 Anorexia; F17.210 Nicotine dependence, cigarettes, uncomplicated; E87.1 Hypo-osmolality and hyponatremia; E11.65 Type 2 diabetes mellitus with hyperglycemia; D72.825 Bandemia; K42.9 Umbilical hernia without obstruction or gangrene; R16.0 Hepatomegaly, not elsewhere classified; E78.1 Pure hyperglyceridemia; E78.5 Hyperlipidemia, unspecified; E66.01 Morbid (severe) obesity due to excess calories
CPT/HCPCS: 36600; 71010; 74177; 80053; 80061; 81001; 82010; 82550; 82805; 82948; 83036; 83690; 84702; 84703; 85007; 85025; 85027; 96361; 96372; 96374; 96375; 99285; G0378; J1815; J2270; J2405; J7030; Q9967

== ENCOUNTER 2017-07-12 09:28 | Emergency (ER) | payer MEDICAID, OTHER ==
[~2017-07-12] VITALS: Ht 157.5 cm; Wt 100.0 kg
[~2017-07-12 09:28] MED LIST changes: +FENO145T2 PO; +GLUCKIT15; +GLUCTES12; +INSU1MIS15; +LANCETS1 MI1; +LEVEMIR SQ
[2017-07-12 09:29] VITALS: BP 135/80; PULSE 79; RESP 16; TEMP 97.9; O2SAT 100
[2017-07-12] MEDS ORDERED: LEVEMIR SQ (09:40)
[2017-07-12] MEDS ORDERED: GLUCTES12 (09:40)
--- NOTE | 2017-07-12 09:45 | PD ---
HPI . Hyperglycemia Chief Complaint: Diabetic Time Seen by Provider: 09:37 Travel History International Travel<30 days: No Contact w/Intl Traveler<30days: No Traveled to known affect area: No History of Present Illness HPI Patient presents complaining with hyperglycemia. She was recently diagnosed with diabetes. She was hospitalized for same. She was treated with insulin. It does not appear that she has been tried on any oral hypoglycemics. Nonetheless, since stating that she has been unable to find primary care since discharge. She is in need of a refill on her Levimir as well as on her test strips. She also is in need of referral to primary care. The patient reports that she feels intermittently fatigue. She thought that her fingerstick blood sugar this morning was 380. She is not having nausea or vomiting. She has not noted any exacerbating or relieving factors. PFSH Past Medical History Blood Disorders: No Cancer: No Cardiovascular Problems: No Diabetes: Yes Patient Takes Glucophage: No Endocrine: Yes Genitourinary: No Immune Disorder: No Musculoskeletal: Yes (BONE SPUR RIGHT KNEE) Neurologic: No Psychiatric: No Reproductive: Yes (RIGHT OVARIAN REMOVAL ) Respiratory: No Immunizations Current: Yes ?: Not Past Surgical History Appendectomy: Yes Cholecystectomy: Yes Gynecologic Surgery: Yes Social History Alcohol Use: No Tobacco Use: Yes Substance Use: No Allergies-Medications (Allergen,Severity, Reaction): Coded Allergies: No Known Allergies (Unverified , 12/04/16) Reported Meds & Prescriptions Reported Meds & Active Scripts Active Glucocom Test Strips (Blood Glucose Test Strips) 1 Reyna Reyna Ea .ROUTE DIRECTED Levemir Inj (Insulin Detemir) 1,000 unit/ 10 ML Vial 30 Units SQ HS Do not mix with any other Insulin. Lancets 1 Mis Mis Ea .ROUTE DIRECTED Insulin Syringe/U-100/31G X 5/16" 1 ml 31 Gauge X 5/16" Mis Ea .ROUTE DIRECTED Glucocom Blood Glucose Mo W/Device (Device) 1 Kit Kit Kit .ROUTE DIRECTED Fenofibrate 145 Mg Tab 145 Mg PO DAILY Permethrin Topical 5% (Permethrin) 5% Cream 1 Applic TOPICAL ONCE Review of Systems Except as stated in HPI: all other systems reviewed are Neg General / Constitutional: Positive: Other (fatigue) Gastrointestinal: No: Nausea, Vomiting Physical Exam Narrative GENERAL: Awake and alert and in no acute distress. SKIN: Warm and dry with no rash or lesions. HEAD: Normocephalic/atraumatic. EYES: Pupils are equal. Extraocular movements are intact. ENT: Mucous membranes are moist. She does not smell of ketones. NECK: Supple with full range of motion. CARDIOVASCULAR: Heart sounds are normal. RESPIRATORY: Lungs are clear with full air movement throughout. MUSCULOSKELETAL: Atraumatic. NEUROLOGICAL: Nonfocal. PSYCHIATRIC: Appropriate mood and affect. Data Data Last Documented VS Vital Signs Date Time Temp Pulse Resp B/P (MAP) Pulse Ox O2 Delivery O2 Flow Rate FiO2 07/12/17 09:29 97.9 79 16 135/80 (98) 100 Room Air Orders Orders Ed Discharge Order (07/12/17 09:40) MDM Medical Decision Making Medical Screen Exam Complete: Yes Emergency Medical Condition: Yes Medical Record Reviewed: Yes (patient was admitted here in mid May for pancreatitis as well as new onset diabetes. She was treated strictly with insulin.) Differential Diagnosis Differential diagnosis of hyperglycemia includes but is not limited to dietary indiscretion, medication noncompliance, infection, ND Narrative Course This patient presents with a chief complaint of hyperglycemia. Her fingerstick blood sugar here is about 200. I have refilled prescriptions for Levemir and for glucose test strips. She is being referred to the [place] [facility]. I have asked case management to speak with her regarding primary care, etc. Diagnosis Primary Impression: DM (diabetes mellitus) Qualified Codes: E11.9 - Type 2 diabetes mellitus without complications Referrals: [facility] 1 day Patient Instructions: General Instructions Departure Forms: Tests/Procedures Scripts Glucocom Test Strips (Glucocom Test Strips) 1 Reyna Reyna EA .ROUTE DIRECTED for Blood Sugar Management, #1 Prov: Jihan Loaiza MD 07/12/17 Insulin Detemir Inj (Levemir Inj) 1,000 unit/ 10 ML Vial 30 UNITS SQ HS for Blood Sugar Management, #30 INJECTION 1 Refill Do not mix with any other Insulin. Prov: Jihan Loaiza MD 07/12/17 Disposition: 01 DISCHARGE HOME Condition: Stable Jihan Loaiza MD Jul 12, 2017 09:45
== END 2017-07-12 09:51 | disposition home or self-care (01) ==
LOC: NEPK 09:28
DX: E11.65 Type 2 diabetes mellitus with hyperglycemia (principal); Z72.0 Tobacco use; Z79.4 Long term (current) use of insulin; Z79.899 Other long term (current) drug therapy
CPT/HCPCS: 99283